=== PATIENT | female | born 1955 | race Caucasian/White ===

== ENCOUNTER 2016-10-26 16:46 | Emergency (ER) | payer BC ==
[2016-10-26 17:22] VITALS: BP 136/80; PULSE 74; TEMP 98.4; BMI 28.7
[2016-10-26] MEDS ORDERED: ALBUTEROL SO4 0.083% IH SOL 2.5 MG/3 ML VIAL.NEB. NEB ONE ×2 (18:09→18:10)
[2016-10-26] MEDS ORDERED: guaiFENesin/CODEINE 5 ML UNIT-DOSE CUPS PO PRN (18:09)
[2016-10-26] MEDS ORDERED: IBUPROFEN 600 MG TABLET (FP) PO ONE ×2 (18:09→18:10)
[2016-10-26] MEDS ORDERED: guaiFENesin/CODEINE 10 ML UNIT-DOSE CUPS ONE (18:18)
--- NOTE | 2016-10-26 18:42 | PDOC ---
[id number] 4d COLD SYMPTOMS Time Seen by Provider: 10/26/16 17:37 History Source: Patient Exam Limitations: No Limitations - History of Present Illness Initial Comments: 10/26/16 18:42 60 yr female with cough for 2 weeks no fever no chills. Past History - Past Medical History Allergies/Adverse Reactions: Allergies Allergy/AdvReac Type Severity Reaction Status Date / Time No Known Allergies Allergy Verified 10/26/16 17:22 Home Medications: Ambulatory Orders Cephalexin [Keflex] 500 mg PO QID #40 capsule 08/24/16 Sulfamethoxazole/Trimethoprim [Bactrim Ds Tablet] 1 each PO BID #20 tablet 08/24 Lisinopril [Prinivil] 10 mg PO DAILY 08/26/16 Pantoprazole Sodium 40 mg PO DAILY 08/26/16 Simvastatin 80 mg PO HS 08/26/16 Tramadol HCl/Acetaminophen [Tramadol-Acetaminophn 37.5-325] 1 each PO Q6H #30 tablet MDD 4 08/26/16 Albuterol Sulfate Inhaler - [Ventolin HFA Inhaler -] 1 - 2 inh PO Q4H #1 inhaler 10/26/16 Azithromycin [Zithromax 250mg Tablets -] 250 mg PO UTDICT #6 tab 10/26/16 Prednisone [Deltasone -] 40 mg PO DAILY #10 tablet 10/26/16 HTN: Yes Hypercholesterolemia: Yes - Family Disease History Comment:: 10/26/16 18:43 none relevant - Psycho/Social/Smoking Cessation Hx Suicidal Ideation: No Smoking History: Current some day smoker Have you smoked in the past 12 months: Yes Number of Cigarettes Smoked Daily: 1 Information on smoking cessation initiated: No 'Breaking Loose' booklet given: 08/24/16 Hx Alcohol Use: Yes (OCCASIONALLY) Drug/Substance Use Hx: No Substance Use Type: None Respiratory Specific PMHX - Complaint Specific PMHX Angina: No Bronchitis: No Pneumonia: No Pulmonary Embolus: No TB (Tuberculosis): No Review of Systems - Review of Systems Able to Perform ROS?: Yes Is the patient limited Mohawk proficient: No Constitutional: No: Symptoms Reported HEENTM: No: Symptoms Reported Respiratory: Yes: See HPI, Cough *Physical Exam - Vital Signs Last Vital Signs Temp Pulse Resp BP Pulse Ox 98.4 F 74 18 136/80 96 10/26/16 17:20 10/26/16 17:20 10/26/16 17:20 10/26/16 17:20 10/26/16 17:20 - Physical Exam General Appearance: Yes: Nourished, Appropriately Dressed HEENT: positive: EOMI, RIVERA, Normal ENT Inspection, TMs Normal, Pharynx Normal Neck: positive: Supple. negative: Tender Respiratory/Chest: positive: Lungs Clear, Normal Breath Sounds Cardiovascular: positive: Regular Rhythm, Regular Rate Gastrointestinal/Abdominal: positive: Normal Bowel Sounds, Soft Musculoskeletal: positive: Normal Inspection Extremity: positive: Normal Capillary Refill, Normal Inspection, Normal Range of Motion Integumentary: positive: Normal Color, Dry, Warm Neurologic: positive: Fully Oriented, Alert, Normal Mood/Affect, Normal Response , Motor Strength 02/25 ED Treatment Course - RADIOLOGY Radiology Studies Ordered: Category Date Time Status CHEST PA & LAT [RAD] Stat Radiology 10/26/16 18:02 Ordered - Medications Given in the ED: ED Medications Discontinued Medications Generic Name Dose Route Start Last Admin Trade Name Abran PRN Reason Stop Dose Admin Albuterol Sulfate 1 amp 10/26/16 18:09 10/26/16 18:13 Ventolin 0.083% Nebulizer Soln - NEB 10/26/16 18:10 1 amp ONCE ONE Administration Ibuprofen 600 mg 10/26/16 18:09 10/26/16 18:13 Motrin - PO 10/26/16 18:10 600 mg ONCE ONE Administration Medical Decision Making - Medical Decision Making 10/26/16 18:44 cc: cough 2 weeks getting worse no fever no chills will get CXR, albuterol neb, motrin for pain to chest with coughing 10/26/16 18:49 CXR negative, possible infiltrate. will treat for bronchitis. pt agrees with plan of care all questions asked and answered before discharge. 11/01/16 14:02 *DC/Admit/Observation/Transfer Diagnosis at time of Disposition: Bronchitis - Discharge Dispostion Disposition: HOME Condition at time of disposition: Good - Prescriptions Prescriptions: Prednisone [Deltasone -] 40 mg PO DAILY #10 tablet Albuterol Sulfate Inhaler - [Ventolin HFA Inhaler -] 1 - 2 inh PO Q4H #1 inhaler Azithromycin [Zithromax 250mg Tablets -] 250 mg PO UTDICT #6 tab - Referrals Referrals: Tony Ely MD [Primary Care Provider] - - Patient Instructions Additional Instructions: use the inhaler as directed take Zpack as directed for 5 days drink pleanty of water to stay well hydrated take prednisone as directed for 4 days take any over the counter cough medicine follow with your doctor in 2-3 days for follow up return if any worsening symptoms
== END 2016-10-26 19:45 | disposition home or self-care (01) ==
LOC: JERFT 16:46
PROC: 3E0F7GC Introduction of Other Therapeutic Substance into Respiratory Tract, Via Natural or Artificial Opening (ICD-10-PCS; principal; 2016-10-26)
DX: J40 Bronchitis, not specified as acute or chronic (principal); I10 Essential (primary) hypertension; E78.00 Pure hypercholesterolemia, unspecified; F17.210 Nicotine dependence, cigarettes, uncomplicated
CPT/HCPCS: 71020-TC; 99281-25

== ENCOUNTER 2016-11-12 12:18 | Emergency (ER) | payer BC ==
[2016-11-12 12:23] VITALS: BP 117/72; PULSE 112; TEMP 98.6; BMI 28.7
--- NOTE | 2016-11-12 14:08 | PDOC ---
History of Present Illness - General Chief Complaint: Chest Pain Stated Complaint: SOB, CHEST PAIN Time Seen by Provider: 11/12/16 13:46 History Source: Patient Exam Limitations: No Limitations - History of Present Illness Initial Comments: 11/12/16 14:31 Patient is a 61 year old female with PMH of HTN, HLD who presents to ED with chest tightness. She states the tightness is substernal, started 4 days ago and is NOT painful. It does not radiate and is not related to exertion or body position. 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 She denies any headache, shortness of breath, diarrhea, constipation, nausea, vomiting, palpitation, dizziness or changes in vision. She was last seen in our ED 2 weeks ago and prescribed Azithromycin/Prednisone/ Albuterol for likely bronchitis. Past History - Travel Traveled outside of the country in the last 30 days: No Close contact w/someone who was outside of country & ill: No - Past Medical History Allergies/Adverse Reactions: Allergies Allergy/AdvReac Type Severity Reaction Status Date / Time No Known Allergies Allergy Verified 11/12/16 12:19 Home Medications: Ambulatory Orders Lisinopril [Prinivil] 10 mg PO DAILY 08/26/16 Pantoprazole Sodium 40 mg PO DAILY 08/26/16 Simvastatin 80 mg PO HS 08/26/16 Albuterol Sulfate Inhaler - [Ventolin HFA Inhaler -] 1 - 2 inh PO Q4H #1 inhaler 10/26/16 HTN: Yes Hypercholesterolemia: Yes Other medical history: recurrent abscesses (buttocks, thicks, perineum) - Surgical History Other Surgical History: 11/12/16 14:36 none noted - Family Disease History Comment:: 11/12/16 14:37 noncontributory - Psycho/Social/Smoking Cessation Hx Anxiety: No Suicidal Ideation: No Smoking History: Current some day smoker Have you smoked in the past 12 months: Yes Number of Cigarettes Smoked Daily: 10 Information on smoking cessation initiated: Yes 'Breaking Loose' booklet given: 11/12/16 Hx Alcohol Use: No Drug/Substance Use Hx: No Substance Use Type: None Review of Systems - Review of Systems Able to Perform ROS?: Yes Is the patient limited Nigerien proficient: No Cardiac (ROS): Yes: Chest Tightness All Other Systems: Reviewed and Negative *Physical Exam - Vital Signs Last Vital Signs Temp Pulse Resp BP Pulse Ox 98.6 F 112 H 18 117/72 98 11/12/16 12:21 11/12/16 12:21 11/12/16 12:21 11/12/16 12:21 11/12/16 12:21 - Physical Exam General Appearance: Yes: Nourished, Appropriately Dressed HEENT: positive: EOMI, RIVERA, Normal ENT Inspection, Pharynx Normal Neck: positive: Trachea midline, Normal Thyroid, Supple Respiratory/Chest: positive: Lungs Clear, Normal Breath Sounds Cardiovascular: positive: Regular Rhythm, Regular Rate, S1, S2 Gastrointestinal/Abdominal: positive: Normal Bowel Sounds, Flat, Soft Musculoskeletal: positive: Normal Inspection Extremity: positive: Normal Inspection, Normal Range of Motion Integumentary: positive: Normal Color, Dry, Warm Neurologic: positive: film spooler II-XII NML intact, Fully Oriented, Alert, Normal Mood/ Affect, Motor Strength 5/5 Heart Score/ECG Review - ECG Impressions Comment:: 11/12/16 14:39 EKG Impression: Sinus Tachycardia ED Treatment Course - LABORATORY CBC & Chemistry Diagram: 11/12/16 15:09 11/12/16 15:09 Medical Decision Making - Medical Decision Making 11/12/16 14:40 Ordered CBC, CMP, Cardiac profile, BNP, D-Dimer, CXR. Although unlikely, will r/ o ACS & PE. Patient is not currently in any distress and does not report any chest tightness at the moment. 11/12/16 17:23 D-Dimer, Troponin both (-). CBC/CMP/BNP uneventful. CXR shows no acute pathology , as per my read. Patient will be sent home with instructions to f/u with PCP in 2 days for checkup. *DC/Admit/Observation/Transfer Diagnosis at time of Disposition: Sensation of chest tightness - Discharge Dispostion Disposition: HOME Condition at time of disposition: Improved Admit: No - Patient Instructions Additional Instructions: Visit your regular doctor within 2-3 days. If chest tightness restarts, alert a doctor immediately. - Post Discharge Activity Work/School Note: Back to Work
--- NOTE | 2016-11-12 15:22 | PDOC ---
Attending Attestation - Resident Resident Name: Mary,Chandana - ED Attending Attestation I have performed the following: I have examined & evaluated the patient, The case was reviewed & discussed with the resident, I agree w/resident's findings & plan - HPI HPI: 11/12/16 17:06 see below - Physicial Exam PE: 11/12/16 17:06 see below - Medical Decision Making 11/12/16 17:06 [id number] hx of hypertension, high cholesterol presenting with chest tightness. She states that she was recently treated for bronchitis, and her symptoms had resolved. 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 pts vitals were noted for tachycardia that resolved when she was rechecked. sat was normal. pts exam was otherwise unremarkable. will ck cxr to r/o pulm disease will ck labs and ekg sypmtoms highly atypical of acs, pe, or even a uri. will d/c if negative
[2016-11-12 15:27] LABS: MCH 29.1 pg (25.7-33.7); MCHC 33.1 g/dl (32.0-36.0); MEAN PLT VOLUME 9.7 fl (7.5-11.1); PLATELET COUNT 174 K/MM3 (134-434); RDW 13.9 % (11.6-15.6); WHITE BLOOD COUNT 5.6 K/mm3 (4.0-10.0)
[2016-11-12 15:56] LABS: ALBUMIN 3.9 g/dl (3.4-5.0); ANION GAP 8 (8-16); BILIRUBIN,TOTAL 0.3 mg/dL (0.2-1.0); CALCIUM 8.8 mg/dL (8.5-10.1); CO2 29 mmol/L (21-32); CREATININE 0.8 mg/dL (0.55-1.02); GLUCOSE,RANDOM 95 mg/dL (74-106); SGOT/AST 17 U/L (15-37); SGPT/ALT 28 U/L (12-78); TOT PROT 7.7 g/dl (6.4-8.2)
[2016-11-12 15:58] LABS: ALK PHOS 106 U/L (45-117); TROPONIN I < 0.02 ng/ml (0.00-0.05)
--- NOTE | 2016-11-15 12:50 | EKG ---
Test Reason : Blood Pressure : / mmHG Vent. Rate : 114 BPM Atrial Rate : 114 BPM P-R Int : 170 ms QRS Dur : 088 ms QT Int : 328 ms P-R-T Axes : 026 014 021 degrees QTc Int : 452 ms SINUS TACHYCARDIA POSSIBLE LEFT ATRIAL ENLARGEMENT BORDERLINE ECG WHEN COMPARED WITH ECG OF 02-AUG-2015 16:48, NO SIGNIFICANT CHANGE WAS FOUND Confirmed by BOOKER TORREZ MD ([id number]) on 11/15/2016 12:50:31 PM Referred By: Confirmed By:BOOKER TORREZ MD
== END 2016-11-12 17:57 | disposition home or self-care (01) ==
LOC: JER 12:18
DX: R07.89 Other chest pain (principal); I10 Essential (primary) hypertension; E78.00 Pure hypercholesterolemia, unspecified; F17.210 Nicotine dependence, cigarettes, uncomplicated
CPT/HCPCS: 36415; 71010-TC; 80053; 82550; 83880; 84484; 85027; 85379; 93005; 93010; 99283-25

== ENCOUNTER 2021-01-08 09:51 | Emergency (ER) | payer BC ==
[2021-01-08 09:55] VITALS: BMI 29.3
[2021-01-08] MEDS ORDERED: ACETAMINOPHEN 1000 MG/100 ML VIAL (NON FORMULARY) IVPB ONE (10:23)
[2021-01-08] MEDS ORDERED: ACETAMINOPHEN INJECTION 100 ML IVPB ONE (10:29)
[2021-01-08] MEDS ORDERED: SODIUM CHLORIDE 1,000 ML IV SCH (11:15)
[2021-01-08 11:53] LABS: BASO % 1.4 % (0-2.0); EOS % 3.9 % (0-4.5); HEMATOCRIT 33.7 % (32.4-45.2); HEMOGLOBIN 11.1 GM/dL (10.7-15.3); LYMPH % 45.9 % (8-40); MCH 29.5 pg (25.7-33.7); MEAN CELL VOLUME 89.3 fl (80-96); MEAN PLT VOLUME 9.6 fl (7.5-11.1); MONO % 8.1 % (3.8-10.2); NEUT % 40.7 % (42.8-82.8); PLATELET COUNT 162 K/MM3 (134-434); RBC 3.78 M/mm3 (3.60-5.2); RDW 13.3 % (11.6-15.6); WHITE BLOOD COUNT 3.4 K/mm3 (4.0-10.0)
[2021-01-08 12:10] LABS: POTASSIUM 4.2 mmol/L (3.5-5.1)
[2021-01-08 12:12] LABS: BLOOD UREA NITROGEN 16.4 mg/dL (7-18); CALCIUM 9.4 mg/dL (8.5-10.1)
[2021-01-08 12:13] LABS: ALBUMIN 3.3 g/dl (3.4-5.0); MAGNESIUM 2.3 mg/dL (1.8-2.4)
[2021-01-08 12:15] LABS: CREATININE 0.6 mg/dL (0.55-1.3)
[2021-01-08 12:16] LABS: PHOSPHOROUS 2.9 mg/dL (2.5-4.9)
[2021-01-08 12:17] LABS: BILIRUBIN,TOTAL 0.3 mg/dL (0.2-1); TOT PROT 6.9 g/dl (6.4-8.2)
[2021-01-08 13:14] VITALS: BP 127/79; PULSE 82; TEMP 98.2
== END 2021-01-08 13:45 | disposition home or self-care (01) ==
LOC: JER 09:51
PROC: 3E0337Z Introduction of Electrolytic and Water Balance Substance into Peripheral Vein, Percutaneous Approach (ICD-10-PCS; principal; 2021-01-08)
DX: R51.9 Headache, unspecified (principal); R20.9 Unspecified disturbances of skin sensation
CPT/HCPCS: 36415; 70450-TC; 80053; 83735; 84100; 85025; 99284-25; J0131

== ENCOUNTER 2021-10-30 16:17 | Emergency (ER) | payer BC ==
[2021-10-30 16:45] VITALS: BP 124/85; PULSE 76; TEMP 98.1; BMI 28.2
[2021-10-30] MEDS ORDERED: ASPIRIN 81 MG CHEWABLE TABLETS PO ONE (17:12)
== END 2021-10-30 19:38 | disposition left against medical advice (07) ==
LOC: JER 16:17 → JERFT 16:17 → JER 19:38
DX: R07.9 Chest pain, unspecified (principal)
CPT/HCPCS: 71046-TC-FY; 93005; 93010; 99284-25